=== PATIENT | female | born 1995 | race Caucasian/White ===

== ENCOUNTER 2016-04-01 16:22 | Emergency (ER) | payer OTHER ==
--- NOTE | 2016-04-01 16:30 | Emergency Department Record ---
History of Present Illness - General Stated Complaint: VOMITING X4 DAYS Time Seen by Provider: 04/01/16 16:29 - Related Data Home Medications Medication Instructions Recorded Confirmed Last Taken No Home Med [NO HOME MEDS] 09/23/15 09/23/15 Unknown Allergies Allergy/AdvReac Type Severity Reaction Status Date / Time No Known Drug Allergies Allergy Verified 09/23/15 21:35 Past Medical History - SOCIAL HISTORY Smoking Status: Light tobacco smoker (<10/day) - RESPIRATORY Hx Respiratory Disorders: No - CARDIOVASCULAR Hx Cardio Disorders: No - NEURO Hx Neuro Disorders: No - GI Hx GI Disorders: No - Hx Genitourinary Disorders: No - ENDOCRINE Hx Endocrine Disorders: No - MUSCULOSKELETAL Hx Musculoskeletal Disorders: No - PSYCH Hx Psych Problems: No - HEMATOLOGY/ONCOLOGY Hx Hematology/Oncology Disorders: No Disposition Clinical Impression: Patient Left Without Being Seen Disposition: Left w/o service/seen Condition: (2) Stable
== END 2016-04-01 16:31 | disposition left against medical advice (07) ==
LOC: ER 16:22
DX: Z53.20 Procedure and treatment not carried out because of patient's decision for unspecified reasons (principal)

== ENCOUNTER 2016-04-01 20:23 | Emergency (ER) | payer OTHER ==
[2016-04-01 20:47] LABS: URINE APPEARANCE CLEAR; URINE BILIRUBIN SMALL (NEGATIVE); URINE BLOOD TRACE-I (NEGATIVE); URINE COLOR YELLOW; URINE GLUCOSE (UA) NEGATIVE (NEGATIVE); URINE LEUKOCYTE ESTERASE NEGATIVE (NEGATIVE); URINE NITRITE NEGATIVE (NEGATIVE); URINE PROTEIN NEGATIVE (NEGATIVE); URINE UROBILINOGEN 0.2 E.U./dL (0.20 - 1.00)
[2016-04-01 20:49] LABS: URINE KETONE 80 mg/dL (NEGATIVE)
[2016-04-01 20:51] LABS: HCG,QUALITATIVE URINE POSITIVE (NEGATIVE); URINE BACTERIA NONE SEEN; URINE RBC 0 - 2 (NONE SEEN); URINE WBC 0 - 2 (0-2/hpf)
--- NOTE | 2016-04-01 20:57 | Emergency Department Record ---
History of Present Illness - General Chief complaint: Vomiting Stated complaint: vomiting Time Seen by Provider: 04/01/16 20:49 Source: Patient Mode of Arrival: Ambulatory Limitations: No limitations - History of Present Illness Initial comments: 20 yo female presents to ED with a 5-day history of nausea, vomiting, and breast tenderness. Patient denies fevers, chills, or recent illness. Patient denies recent ill contacts. Patient reports LMP 2 months ago, and has been engaging in un-protected intercourse. MD complaint: Abdominal pain, Nausea, Vomiting Onset/Timin -: Days(s) Description of Vomiting: Bilious Description of Diarrhea: Other Associated Abdominal Pain: Yes Location: LUQ, RUQ Radiation: None Severity: Moderate Severity scale (1-10): 7 Quality: Aching Consistency: Constant Improves with: None Worsens with: None Context: Other Associated Symptoms: Nausea/vomiting - Related Data Previous Rx's Medication Instructions Recorded Docosahexanoic Acid [ Dha] 200 mg PO DAILY #30 capsule 04/01/16 Metoclopramide HCl [Reglan] 10 mg PO Q6H #15 tablet 04/01/16 Allergies Allergy/AdvReac Type Severity Reaction Status Date / Time No Known Drug Allergies Allergy Verified 09/23/15 21:35 Travel Screening - Travel/Exposure Within Last 30 Days Have you traveled within the last 30 days?: No - Travel/Exposure Within Last Year Have you traveled outside the [place] in the last year?: No - Additonal Travel Details Have you been exposed to anyone with a communicable illness?: No - Travel Symptoms Symptom Screening: None Review of Systems Constitutional: Denies: Chills, Fever, Malaise, Night sweats Eyes: Denies: Eye discharge, Eye pain ENT: Denies: Congestion, Ear pain, Epistaxis Respiratory: Denies: Cough, Dyspnea Cardiovascular: Denies: Chest pain, Dyspnea on exertion, Palpitations Endocrine: Denies: Fatigue, Heat or cold intolerance Gastrointestinal: Reports: Abdominal pain (described as "crampy"), Nausea, Vomiting Genitourinary: Denies: Dysuria, Frequency, Hematuria, Incontinence Musculoskeletal: Denies: Arthralgia, Back pain, Gout, Joint swelling Skin: Denies: Bruising, Change in color Neurological: Denies: Abnormal gait, Confusion, Headache, Seizure Psychiatric: Denies: Anxiety Hematological/Lymphatic: Denies: Anemia, Blood Clots Past Medical History - SOCIAL HISTORY Smoking Status: Light tobacco smoker (<10/day) Alcohol Use: None Drug Use: None - RESPIRATORY Hx Respiratory Disorders: No - CARDIOVASCULAR Hx Cardio Disorders: No - NEURO Hx Neuro Disorders: No - GI Hx GI Disorders: No - Hx Genitourinary Disorders: No - ENDOCRINE Hx Endocrine Disorders: No - MUSCULOSKELETAL Hx Musculoskeletal Disorders: No - PSYCH Hx Psych Problems: No - HEMATOLOGY/ONCOLOGY Hx Hematology/Oncology Disorders: No Family Medical History Any Significant Family History?: No Physical Exam - General General Appearance: Alert, Oriented x3, Cooperative, Mild distress Limitations: No limitations - Head Head exam: Atraumatic, Normocephalic, Normal inspection Head exam detail: negative: Abrasion, Contusion, Murphy's sign, General tenderness, Hematoma, Laceration - Eye Eye exam: Normal appearance. negative: Conjunctival injection, Periorbital swelling, Periorbital tenderness, Scleral icterus - ENT Ear exam: negative: Auricular hematoma, Auricular trauma Nasal Exam: negative: Active bleeding, Discharge, Dried blood, Foreign body Mouth exam: negative: Drooling, Laceration, Muffled voice, Tongue elevation - Neck Neck exam: Normal inspection. negative: Meningismus, Tenderness - Respiratory Respiratory exam: Normal lung sounds bilaterally. negative: Respiratory distress, Rhonchi, Stridor, Wheezes - Cardiovascular Cardiovascular Exam: Regular rate, Normal rhythm, Normal heart sounds - GI/Abdominal GI/Abdominal exam: Soft, Tenderness (mild epigastric TTP on examination, no rebound, guarding, or peritoneal signs on exam). negative: Rebound, Rigid - Rectal Rectal exam: Deferred - exam: Deferred - Extremities Extremities exam: Normal inspection. negative: Calf tenderness, Pedal edema, Tenderness - Back Back exam: Reports: Normal inspection. Denies: CVA tenderness (R), CVA tenderness (L) - Neurological Neurological exam: Alert, Normal gait, Oriented X3 - Psychiatric Psychiatric exam: Normal affect, Normal mood - Skin Skin exam: Normal color. negative: Abrasion Type of lesion: negative: abrasion Course Vital Signs 04/01/16 04/01/16 20:29 20:30 Temperature 98 F 98 F Pulse Rate [ 77 Pulse Ox Probe] Respiratory 16 16 Rate Blood Pressure 105/70 [Left Arm] Pulse Ox 98 98 - Reevaluation(s) Reevaluation #1: 04/01/16 21:32 Labs reviewed, HCG positive, labs are otherwise grossly unremarkable for an acute process. Patient is eating and drinking on examination, and reports that she is feeling much better. Patient appears stable for discharge at this time. Reevaluation #2: 04/01/16 21:41 Patient reassessed, currently talking on mobile phone, well appearing and tolerating PO. Patient appears stable for discharge at this time with Reglan for her nausea/vomiting symptoms and vitamin prescription. Patient was instructed to follow-up with an OB for further evaluation as well. Medical Decision Making - Lab Data Result diagrams: 04/01/16 21:05 04/01/16 21:05 Lab Results 04/01/16 Range/Units 20:49 Urine Color Yellow Urine Appearance Clear Urine pH 6.0 (5.0-8.0) Ur Specific [place] 1.025 (1.002-1.030) Urine Protein Negative (NEGATIVE) Urine Glucose (UA) Negative (NEGATIVE) Urine Ketones 80 mg/dl H (NEGATIVE) Urine Blood Trace-i (NEGATIVE) Urine Nitrite Negative (NEGATIVE) Urine Bilirubin Small H (NEGATIVE) Urine Urobilinogen 0.2 (0.20 - 1.00) E.U./dL Ur Leukocyte Esterase Negative (NEGATIVE) Urine RBC 0 - 2 (NONE SEEN) Urine WBC 0 - 2 (0-2/hpf) Ur Epithelial Cells 7 - 10 (FEW) Urine Bacteria None seen Urine HCG, Qual Positive H (NEGATIVE) Disposition Disposition: Discharge Clinical Impression: Positive test Nausea & vomiting Qualifiers: Vomiting type: unspecified Vomiting Intractability: non-intractable Qualified Code(s): R11.2 - Nausea with vomiting, unspecified Disposition: Home, Self-Care Condition: (2) Stable Instructions: Acute Nausea and Vomiting (ED) Additional Instructions: Return to ED if your symptoms worsen or if you have any concerns. Reglan and vitamins as directed. Follow-up with your family doctor for on info analyst referral. Prescriptions: Docosahexanoic Acid [ Dha] 200 mg PO DAILY #30 capsule Metoclopramide HCl [Reglan] 10 mg PO Q6H #15 tablet Forms: Patient Portal Access Time of Disposition: 21:37
[2016-04-01] MEDS: ONDANSETRON HCL IV 4 MG/2 ML VIAL IVP ONE (21:08)
[2016-04-01] MEDS: 0.9 % SODIUM CHLORIDE 1000ML 1,000 ML IV SCH (21:08)
[2016-04-01 21:15] LABS: BASO % 0.2 % (0-6); EOS % 0.2 % (0-6); GRAN % 78.2 % (47-80); HEMATOCRIT 35.2 % (35.0-47.0); HEMOGLOBIN 12.2 gm/dl (11.6-16.0); MEAN CELL VOLUME 90.3 fl (81-97); MEAN CORPUSCULAR HEMOGLOBIN 31.3 pg (27-33); MEAN CORPUSCULAR HGB CONC 34.7 g/dl (32-36); MEAN PLATELET VOLUME 10.7 fl (7.4-10.4); MONO % 8.4 % (0-9); PLATELET COUNT 193 K/uL (130-400); RED CELL DISTRIBUTION WIDTH 12.2 % (11.5-14.5); WHITE BLOOD COUNT W/O DIFF 9.8 K/uL (4.2-12.2)
[2016-04-01 21:25] LABS: ALB/GLOB RATIO 1.6 (1.1-1.8); ALBUMIN 4.7 gm/dL (3.5-5.0); ALKALINE PHOSPHATASE 54 U/L (38-126); ALT/SGPT 24 U/L (9-52); ANION GAP 15.9 (7-16); AST/SGOT 16 U/L (14-36); BILIRUBIN,TOTAL 0.51 mg/dL (0.2-1.3); BLOOD UREA NITROGEN 10 mg/dL (7-17); CARBON DIOXIDE 18.1 mmol/L (22-30); CREATININE 0.5 mg/dL (0.52-1.04); EST GLOMERULAR FILTRATION RATE > 60 ml/min; GLUCOSE,RANDOM 83 mg/dL (70-110); LIPASE 44 U/L (23-300); TOTAL PROTEIN 7.6 gm/dL (6.3-8.2)
== END 2016-04-01 22:03 | disposition home or self-care (01) ==
LOC: ER 20:23
DX: O21.9 Vomiting of pregnancy, unspecified (principal)
CPT/HCPCS: 99284 ×2; 96374; 96361; 83690; 85025; 80053; 81001; 81025; J2405; J7030